=== PATIENT | male | born 1985 | race Caucasian/White ===

== ENCOUNTER 2017-05-18 20:10 | Emergency (ER) | payer OTHER ==
[2017-05-18] MEDS ORDERED: Ondansetron 4 MG Tab.DIS PO ONE (20:34)
[2017-05-18] MEDS ORDERED: Ketorolac 60 MG/2 ML SDV IM ONE (20:34)
--- NOTE | 2017-05-18 20:44 | EDM.PDOC ---
ED HPI GENERAL MEDICAL PROBLEM - General Chief Complaint: Genitourinary Problem Stated Complaint: L LOWER BACK PAIN Time Seen by Provider: 05/18/17 20:30 Source of Information: Reports: Patient, RN History Limitations: Reports: No Limitations - History of Present Illness INITIAL COMMENTS - FREE TEXT/NARRATIVE: 31 yo male here with L flank pain that began shortly before arrival not associated with fever or injury. Has no hx of kidney stones. His brother has had stones. Has some nausea with the pain. Pain waxes and wanes. No change with movement. Onset: Today Onset Date: 05/18/17 Onset Time: 19:00 Duration: Minutes:, Intermittent, Waxing/Waning Location: Reports: Back (L side) Quality: Reports: Stabbing Severity: Moderate Improves with: Reports: None Worsens with: Reports: None Context: Reports: Other (FHx of stones, eats a lot of meat) Associated Symptoms: Reports: Nausea/Vomiting (no vomiting.) Treatments APARTMENT LOCATOR: Reports: Other (see below) (none) Left Flank Pain Score (Numeric/FACES): 8 - Related Data Allergies Allergy/AdvReac Type Severity Reaction Status Date / Time No Known Allergies Allergy Verified 05/18/17 20:27 Home Meds: Home Meds NK [No Known Home Meds] 05/18/17 [History] Past Medical History HEENT History: Reports: Impaired Vision - Past Surgical History HEENT Surgical History: Reports: JOHN Social & Family History - Tobacco Use Smoking Status *Q: Never Smoker - Caffeine Use Caffeine Use: Reports: Soda - Recreational Drug Use Recreational Drug Use: No ED ROS GENERAL - Review of Systems Review Of Systems: See Below Constitutional: Reports: No Symptoms Respiratory: Reports: No Symptoms Cardiovascular: Reports: No Symptoms GI/Abdominal: Reports: Nausea. Denies: Abdominal Pain, Black Stool, Bloody Stool, Constipation, Diarrhea, Vomiting : Reports: No Symptoms Musculoskeletal: Reports: No Symptoms Skin: Reports: No Symptoms Neurological: Reports: No Symptoms Psychiatric: Reports: No Symptoms ED EXAM, RENAL/ - Physical Exam Exam: See Below Exam Limited By: No Limitations General Appearance: Alert, WD/WN, No Apparent Distress Eye Exam: Bilateral Eye: Normal Inspection Ears: Normal External Exam, Normal Canal, Hearing Grossly Normal Nose: Normal Inspection, Normal Mucosa, No Blood Throat/Mouth: Normal Voice, No Airway Compromise Head: Atraumatic, Normocephalic Neck: Normal Inspection Respiratory/Chest: No Respiratory Distress, Lungs Clear, Normal Breath Sounds, No Accessory Muscle Use Cardiovascular: Regular Rate, Rhythm, No Edema GI/Abdominal: Normal Bowel Sounds, Soft, Non-Tender, No Distention Back Exam: Normal Inspection. No: CVA Tenderness (R), CVA Tenderness (L), Decreased Range of Motion, Paraspinal Tenderness, Vertebral Tenderness Extremities: Normal Inspection, Normal Range of Motion, Non-Tender, No Pedal Edema Neurological: Alert, Oriented, CN II-XII Intact, Normal Cognition, No Motor/ Sensory Deficits Psychiatric: Normal Affect, Normal Mood Skin Exam: Warm, Dry, Intact, Normal Color, No Rash Lymphatic: No Adenopathy Course - Vital Signs Last Recorded V/S: Last Vital Signs Temp 36.2 C 05/18/17 20:23 Pulse 80 05/18/17 21:58 Resp 16 05/18/17 21:58 BP 135/81 05/18/17 21:58 Pulse Ox 98 05/18/17 20:23 - Orders/Labs/Meds Orders: Active Orders 24 hr Category Date Time Status Abdomen Pelvis wo Cont [CT] Stat Exams 05/18/17 20:55 Taken Labs: Laboratory Tests 05/18/17 Range/Units 20:36 Urine Color Yellow Urine Appearance Clear Urine pH 5.0 (4.5-8.0) Ur Specific Alfred 1.030 (1.008-1.030) Urine Protein Negative (NEGATIVE) mg/dL Urine Glucose (UA) Normal (NEGATIVE) mg/dL Urine Ketones Negative (NEGATIVE) mg/dL Urine Occult Blood Negative (NEGATIVE) Urine Nitrite Negative (NEGAITVE) Urine Bilirubin Negative (NEGATIVE) Urine Urobilinogen Normal (NORMAL) mg/dL Ur Leukocyte Esterase Negative (NEGATIVE) Urine RBC 0-5 (0-5) Urine WBC 0-5 (0-5) Ur Epithelial Cells Many Amorphous Sediment Rare Urine Bacteria Not seen Urine Mucus Not seen Meds: Medications Discontinued Medications Generic Name Dose Route Start Last Admin Trade Name Freq PRN Reason Stop Dose Admin Ketorolac Tromethamine 60 mg 05/18/17 20:34 05/18/17 20:42 Toradol IM 05/18/17 20:35 60 mg ONETIME ONE Administration Ondansetron HCl 4 mg 05/18/17 20:34 05/18/17 20:42 Zofran Odt PO 05/18/17 20:35 4 mg ONETIME ONE Administration - Radiology Interpretation Free Text/Narrative:: L sided hydronephrosis consistent with recent stone passage. CT Results Date: 05/18/17 CT Results Time: 22:00 Departure - Departure Time of Disposition: 22:02 Disposition: Home, Self-Care 01 Condition: Good Clinical Impression: Kidney stone on left side - Discharge Information Referrals: PCP,None [Primary Care Provider] - Forms: ED Department Discharge - My Orders Last 24 Hours: My Active Orders 05/18/17 20:55 Abdomen Pelvis wo Cont [CT] Stat - Assessment/Plan Last 24 Hours: My Active Orders 05/18/17 20:55 Abdomen Pelvis wo Cont [CT] Stat
[2017-05-18 21:58] VITALS: BP 135/81
== END 2017-05-18 22:17 | disposition home or self-care (01) ==
LOC: JP.ED 20:10
DX: N13.2 Hydronephrosis with renal and ureteral calculous obstruction (principal)
CPT/HCPCS: 74176; 81001; 82360; 96372; 99284; A9270; J1885